=== PATIENT | male | born 1980 | race Caucasian/White ===

== ENCOUNTER 2019-06-13 22:48 | Emergency (ER) | payer OTHER ==
[2019-06-13 22:56] VITALS: BP 130/83
--- NOTE | 2019-06-13 22:57 | ED Physician Documentation ---
PD HPI ABD PAIN - Stated complaint Stated Complaint: R SIDE PAIN - Chief complaint Chief Complaint: Abd Pain - History obtained from History obtained from: Patient - History of Present Illness Timing - onset: How many hours ago (2) Timing - duration: Hours Timing - details: Abrupt onset, Waxing and waning Pain level max: 9 Pain level now: 5 Quality: Pain Location: RLQ Radiation: Other (right groin), Right flank Improved by: Other (no ameliorating factors) Worsened by: Other (no exacerbating factors) Associated symptoms: Nausea. No: Fever, Vomiting, Diarrhea, Constipation Similar symptoms before: Diagnosis (similar to previous renal colic) Recently seen: Not recently seen - Additional information Additional information: while at work but at rest, 2 AM sudden onset right flank pain radiating to right groin, waxing and waning without apparent inciting/exacerbating/ameliorating factors. Similar to previous renal colic. Maximum pain was 9/10 but pain has improved en route to ED , now 5/10. Review of Systems Constitutional: reports: Sweats. denies: Fever GI: reports: Nausea. denies: Abdominal Pain, Vomiting, Constipation, Diarrhea : reports: Hematuria. denies: Dysuria, Frequency PD PAST MEDICAL HISTORY - Past Medical History Past Medical History: Yes : Kidney stones - Past Surgical History Past Surgical History: No - Present Medications Home Medications: Ambulatory Orders Medication Instructions Recorded Confirmed Atorvastatin [Lipitor] 20 mg PO DAILY 06/13/19 06/13/19 Dextroamphetamine/Amphetamine 20 mg PO DAILY 06/13/19 06/13/19 [Adderall 20 mg Tablet] Omeprazole 20 mg PO DAILY 06/13/19 06/13/19 PARoxetine HCl [Paxil] 20 mg PO DAILY 06/13/19 06/13/19 Ondansetron Odt [Zofran] 4 mg TL Q6H PRN #14 tablet 06/14/19 oxyCODONE [Roxicodone] 5 - 10 mg PO Q6H PRN #15 tablet 06/14/19 - Allergies Allergies/Adverse Reactions: Allergies Allergy/AdvReac Type Severity Reaction Status Date / Time No Known Drug Allergies Allergy Verified 06/13/19 22:56 - Living Situation Living Arrangement: reports: At home PD ED PE NORMAL - Vitals Vital signs reviewed: Yes - General General: Alert and oriented X 3, No acute distress, Well developed/nourished - Cardiac Cardiac: RRR, No murmur - Respiratory Respiratory: No respiratory distress, Clear bilaterally - Abdomen Abdomen: Soft, Non tender, Non distended - Back Back: No CVA TTP - Derm Derm: No rash Results - Vitals Vitals: Vital Signs - 24 hr 06/13/19 22:54 Temperature 36.4 C L Heart Rate 58 L Respiratory 16 Rate Blood Pressure 130/83 H O2 Saturation 100 Oxygen O2 Source Room air - Labs Labs: Laboratory Tests 06/13/19 23:45 Urine Color DARK YELLOW Urine Clarity HAZY Urine pH 5.5 Ur Specific [place] >=1.030 H Urine Protein 100 H Urine Glucose (UA) NEGATIVE Urine Ketones 15 H Urine Occult Blood LARGE H Urine Nitrite NEGATIVE Urine Bilirubin NEGATIVE Urine Urobilinogen 1 (NORMAL) Ur Leukocyte Esterase NEGATIVE Urine RBC TNTC H Urine WBC 0-3 Ur Squamous Epith Cells RARE Squamous Urine Bacteria Rare Urine Mucus Few Strands Ur Microscopic Review INDICATED Urine Culture Comments NOT INDICATED - Rads (name of study) CT A/P Radiology: Prelim report reviewed, See rad report PD MEDICAL DECISION MAKING - ED course Complexity details: reviewed results, re-evaluated patient, considered differential, d/w patient ED course: Pain had improved significantly [employer]ENT ASSESSMENT, but then began to worsen after CT was performed. Has ride home (spouse in [place]); given IM toradol and PO oxycodone (we discussed other options including IM morphine or IM dilaudid, but he declines these). We also discussed flomax; he says he has not had benefit from this in the past with other kidney stones. I explained that it is not a perceivable effect, but rather that it is used to speed up time to passage of kidney stone as well as increase likelihood of passage (versus requiring lithotripsy or other procedure). He feels that it caused urinary frequency. He declines the medication (flomax) after this discussion. Departure - Departure Disposition: 01 Home, Self Care Clinical Impression: Renal colic Condition: Good Instructions: ED Stone Renal W Colic Follow-Up: MACHELLE DIAZ MD [Primary Care Provider] - Prescriptions: Ondansetron Odt [Zofran] 4 mg TL Q6H PRN #14 tablet PRN Reason: Nausea / Vomiting oxyCODONE [Roxicodone] 5 - 10 mg PO Q6H PRN #15 tablet PRN Reason: Pain Discharge Date/Time: 06/14/19 00:24
--- NOTE | 2019-06-13 23:55 | CT Report ---
Reason: right flank pain Procedure Date: 06/13/2019 Accession Number: [id number] / [id number] Procedure: CT - Abdomen/Pelvis WO CPT Code: Final Report FULL RESULT: EXAM: CT ABDOMEN AND PELVIS (CT KUB) WITHOUT CONTRAST. EXAM DATE: 06/13/2019 11:34 PM. CLINICAL HISTORY: Right flank pain. COMPARISONS: None. TECHNIQUE: Routine axial helical CT imaging was performed through the abdomen and pelvis without IV contrast. Reconstructions: Coronal and sagittal. In accordance with CT protocol optimization, one or more of the following dose reduction techniques were utilized for this exam: automated exposure control, adjustment of mA and/or KV based on patient size, or use of iterative reconstructive technique. FINDINGS: Lung Bases: Unremarkable. Right Kidney/Ureter: Cyst in the right kidney measuring 2 x 2.4 cm in axial plane with an adjacent focus of calcification posteriorly measuring 5 x 3 mm in the axial plane. Mild right-sided hydronephrosis. Small obstructing stone in the proximal right ureter just downstream from the right ureteropelvic junction measuring 2 mm in diameter. No other ureteral stones identified. Left Kidney/Ureter: No stones, hydronephrosis, or hydroureter. No perinephric fat stranding. Other Solid Organs: Noncontrast images of the solid organs are grossly unremarkable. Gallbladder/Bile Ducts: Unremarkable. Peritoneal Cavity: No free fluid, free air or elyse adenopathy. Bowel is grossly unremarkable. Pelvic Organs: No bladder stones or wall thickening. Noncontrast images of the visualized pelvic organs are unremarkable. Vasculature: Unremarkable. Other: Small fat-containing left inguinal hernia. IMPRESSION: 1. Obstructing stone in the proximal right ureter just downstream from the right UPJ measuring 2 mm in diameter and associated with mild right-sided hydronephrosis. 2. No other urinary tract stones. 3. Right renal cyst measuring 2 x 2.4 cm in the axial plane with an adjacent focus of calcification measuring 5 x 3 mm which may be part of the cyst wall versus an adjacent nonobstructing intrarenal stone. [facility]
[2019-06-14 00:01] LABS: GLUCOSE, URINE (UA) NEGATIVE (NEGATIVE); KETONES,URINE (UA) 15 mg/dL (NEGATIVE); LEUKOCYTE ESTERASE, URINE NEGATIVE (NEGATIVE); NITRITE,URINE NEGATIVE (NEGATIVE); OCCULT BLOOD,URINE LARGE (NEGATIVE); PH,URINE 5.5 PH (5.0-7.5); PROTEIN,URINE 100 mg/dL (NEGATIVE); UROBILINOGEN,URINE 1 (NORMAL) E.U./dL (NORMAL)
[2019-06-14 00:06] LABS: BACTERIA,URINE Rare /HPF (None Seen); BILIRUBIN,URINE NEGATIVE (NEGATIVE); CLARITY,URINE HAZY (CLEAR); ICTOTEST,URINE NEGATIVE; MUCUS,URINE Few Strands; RBC,URINE TNTC /HPF (0-5); SQUAMOUS EPITHELIAL CELL,UR RARE Squamous (<= Few)
[2019-06-14] MEDS: KETOROLAC 60 MG/2 ML VIAL IM STA (00:10)
[2019-06-14] MEDS: oxyCODONE/ACET 5/325 Prepack 4 PO STA (00:10)
== END 2019-06-14 00:24 | disposition home or self-care (01) ==
LOC: ED 22:48
DX: N13.2 Hydronephrosis with renal and ureteral calculous obstruction (principal)
CPT/HCPCS: 74176; 81001; 81003; 87086; 96372; 99284